=== PATIENT | female | born 1980 | race Two or more races ===

== ENCOUNTER 2021-03-24 19:02 | Observation (INO) | payer OTHER ==
[~2021-03-24] VITALS: Ht 172.7 cm; Wt 120.2 kg
[2021-03-24] MEDS ORDERED: SODIUM CHLORIDE 0.9% 1000ML 1,000 ML IV STA (19:06)
[2021-03-24] MEDS ORDERED: ASPIRIN 81 MG CHEW TAB PO ONE ×2 (19:15→21:00)
[2021-03-24] MEDS ORDERED: GLUCAGON FOR INJ 1 MG VIAL IV ONE (19:15)
[2021-03-24 19:30] LABS: BASOPHILS % 0.5 % (0.0-1.0); EOSINOPHILS # (AUTO) 0.2 (0.0-0.4); EOSINOPHILS % 2.5 % (0.0-6.0); HEMATOCRIT 40.9 % (34.2-44.1); HEMOGLOBIN 13.5 g/dL (12.0-16.0); LYMPHOCYTES # (AUTO) 3.2 (1.0-3.2); LYMPHOCYTES % 50.3 % (18.0-39.1); MEAN CORPUSCULAR HEMOGLOBIN 28.4 pg (28-32); MEAN CORPUSCULAR VOLUME 86.1 fL (81-99); MONOCYTES # (AUTO) 0.4 (0.2-0.8); MONOCYTES % 6.2 % (4.4-11.3); NEUTROPHILS # (AUTO) 2.5 (2.1-6.9); NEUTROPHILS % 40.5 % (38.7-80.0); PLATELET COUNT 224 x10e3/uL (140-360); RED BLOOD COUNT 4.75 x10e6/uL (3.6-5.1); RED CELL DISTRIBUTION WIDTH 12.9 % (11.7-14.4)
[2021-03-24 19:50] LABS: ALANINE AMINOTRANSFERASE 11 IU/L (0-55); ALBUMIN 3.9 g/dL (3.5-5.0); ALBUMIN/GLOBULIN RATIO 1.1 (0.8-2.0); ALKALINE PHOSPHATASE 52 IU/L (40-150); BLOOD UREA NITROGEN 8 mg/dL (7-26); BUN/CREATININE RATIO 10 (6-25); CALCIUM 8.4 mg/dL (8.4-10.2); CARBON DIOXIDE 23 mmol/L (22-29); CHLORIDE 106 mmol/L (98-107); CREATINE KINASE 101 IU/L (29-168); CREATININE, SERUM 0.83 mg/dL (0.57-1.11); EST GLOMERULAR FILTRATION RATE > 60 ML/MIN (60-); GLUCOSE 100 mg/dL (74-118); SODIUM 139 mmol/L (136-145)
[2021-03-24] MEDS ORDERED: RIZATRIPTAN10 MG PO (20:54)
[2021-03-24] MEDS ORDERED: METOPROLOL SUCC25 MG PO (20:54)
[2021-03-24] MEDS ORDERED: LEVOTHYROXINE50 MCG PO (20:54)
[2021-03-24] MEDS ORDERED: ONDANSETRON ODT4 MG PO (20:54)
[2021-03-24] MEDS: SODIUM CHLORIDE 0.9% 1000ML 1,000 ML IV SCH (21:30)
[2021-03-24 23:10] VITALS: BP 128/49
[2021-03-24] MEDS ORDERED: ONDANSETRON HCL INJ 2MG/ML 2ML 2 MG/ML VIAL IV PRN (23:15)
[2021-03-24] MEDS ORDERED: MORPHINE SULFATE INJ 4 MG/ML INJ 1ML IV PRN (23:15)
[2021-03-25 00:02] LABS: CLARITY,URINE CLEAR (CLEAR); COLOR,URINE YELLOW (YELLOW); KETONES,URINE NEGATIVE (NEGATIVE); LEUKOCYTE ESTERASE ,URINE NEGATIVE (NEGATIVE); NITRITE,URINE NEGATIVE (NEGATIVE); PROTEIN,URINE DIPSTICK NEGATIVE (NEGATIVE); URINE UROBILINOGEN 0.2 mg/dL (0.2 - 1)
[2021-03-25 00:21] LABS: RBC,URINE 0-5 /HPF (0-5); WBC,URINE (MAN) 0-5 /HPF (0-5)
[2021-03-25 00:22] LABS: EPITHELIAL CELLS,URINE FEW /LPF
[2021-03-25 01:17] VITALS: BP 128/49
[2021-03-25 04:00] VITALS: BP_SYST 130; BP_SYST 138; BP_DIAS 62
[2021-03-25 05:25] LABS: BASOPHILS % 0.6 % (0.0-1.0); EOSINOPHILS # (AUTO) 0.2 (0.0-0.4); EOSINOPHILS % 3.1 % (0.0-6.0); HEMATOCRIT 42.3 % (34.2-44.1); HEMOGLOBIN 13.5 g/dL (12.0-16.0); LYMPHOCYTES # (AUTO) 2.4 (1.0-3.2); LYMPHOCYTES % 43.8 % (18.0-39.1); MEAN CORPUSCULAR HEMOGLOBIN 28.2 pg (28-32); MEAN CORPUSCULAR HGB CONC 31.9 g/dL (31-35); MEAN CORPUSCULAR VOLUME 88.3 fL (81-99); MONOCYTES # (AUTO) 0.4 (0.2-0.8); MONOCYTES % 7.5 % (4.4-11.3); NEUTROPHILS # (AUTO) 2.4 (2.1-6.9); NEUTROPHILS % 44.8 % (38.7-80.0); PLATELET COUNT 96 x10e3/uL (140-360); RED BLOOD COUNT 4.79 x10e6/uL (3.6-5.1); RED CELL DISTRIBUTION WIDTH 12.8 % (11.7-14.4)
[2021-03-25 06:05] LABS: CREATINE KINASE 81 IU/L (29-168)
[2021-03-25 06:22] LABS: CHLORIDE 112 mmol/L (98-107); POTASSIUM 4.1 mmol/L (3.5-5.1); SODIUM 140 mmol/L (136-145)
[2021-03-25] MEDS: SODIUM CHLORIDE 0.9% 1000ML 1,000 ML IV SCH (06:30)
[2021-03-25 07:00] LABS: ALANINE AMINOTRANSFERASE 12 IU/L (0-55); ALBUMIN 3.4 g/dL (3.5-5.0); ALKALINE PHOSPHATASE 44 IU/L (40-150); ANION GAP 15.1 mmol/L (8-16); BLOOD UREA NITROGEN 8 mg/dL (7-26); BUN/CREATININE RATIO 11 (6-25); CARBON DIOXIDE 17 mmol/L (22-29); CREATININE, SERUM 0.74 mg/dL (0.57-1.11); EST GLOMERULAR FILTRATION RATE > 60 ML/MIN (60-); GLUCOSE 97 mg/dL (74-118)
[2021-03-25 08:24] VITALS: BP 125/66
[2021-03-25 09:10] VITALS: BP 125/66
[2021-03-25 10:12] LABS: CHOL/HDL RATIO 3.4 (3.0-3.6)
[2021-03-25 10:32] LABS: THYROID STIMULATING HORMONE 3.545 uIU/mL (0.350-4.940)
[2021-03-25 12:11] VITALS: BP 137/73
[2021-03-25 12:46] LABS: CREATINE KINASE 79 IU/L (29-168)
== END 2021-03-25 13:00 | disposition home or self-care (01) ==
LOC: ER 19:20 → ERHOLD 21:06 → MED/SURG 23:27
PROVIDERS: ADMIT Internal Medicine; ATTEND Internal Medicine
DX: I49.3 Ventricular premature depolarization (principal); R00.1 Bradycardia, unspecified; Z88.0 Allergy status to penicillin; E66.01 Morbid (severe) obesity due to excess calories; R00.8 Other abnormalities of heart beat; E03.9 Hypothyroidism, unspecified; Z20.822 Contact with and (suspected) exposure to COVID-19; Z68.41 Body mass index [BMI] 40.0-44.9, adult
CPT/HCPCS: 36415 ×2; 70450; 71045; 80053 ×2; 80061; 81001; 81025; 82550 ×2; 82553 ×2; 83880; 84443; 84484 ×2; 85025 ×2; 93005; 93306; 99284; G0378 ×2; J1610; J7030 ×2; U0002